=== PATIENT | male | born 1950 | race Caucasian/White ===

== ENCOUNTER 2021-02-03 13:13 | Outpatient (REF) | payer MEDICARE, SELFPAY ==
--- NOTE | ~2021-02-03 | MR_ITS ---
EXAMINATION: MR ABDOMEN WITHOUT AND WITH CONTRAST CLINICAL INFORMATION: History of hepatitis C. Hepatic coma. COMPARISON: Outside ultrasound report from 01/07/2021. Outside CT report from 08/12/2019. TECHNIQUE: MR abdomen was performed without and with use of 10 mL intravenous Gadavist gadolinium contrast. Postcontrast images are performed in multiphase dynamic sequences. Imaging was performed in 3 planes. FINDINGS: LUNG BASES: The visualized lung bases are unremarkable. LIVER, GALLBLADDER, AND BILIARY TREE: Normal size of the liver. Normal signal without signal dropout on the phase imaging to suggest steatosis. There is a nodular Contour of the liver, consistent with a history of cirrhosis. No focal hepatic lesion or biliary ductal dilatation is present. Specifically, no arterially enhancing lesion. No areas of early washout. The gallbladder is unremarkable with no evidence of gallbladder wall thickening, or obvious pericholecystic inflammatory changes. PANCREAS: Unremarkable. SPLEEN: Normal. ADRENAL GLANDS: Normal. KIDNEYS AND URETERS: The kidneys are normal in size, shape, and enhance symmetrically. No hydronephrosis. No perinephric stranding. GASTROINTESTINAL TRACT: No bowel obstruction. No ascites or fluid collection. ABDOMINAL WALL: No significant hernia is appreciated. LYMPH NODES: No lymphadenopathy. VASCULAR: Unremarkable. OSSEOUS STRUCTURES: Marrow signal normal. Degenerative changes of the spine. Status post median sternotomy. MR/MR abdomen wo/w con IMPRESSION: Cirrhotic liver with no suspicious liver lesion identified.
== END 2021-02-03 13:14 | disposition home or self-care (01) ==
LOC: HO.MRI 13:13
PROVIDERS: Visit Provider Internal Medicine Gastroenterology
DX: R93.2 Abnormal findings on diagnostic imaging of liver and biliary tract (principal); K74.69 Other cirrhosis of liver; B18.2 Chronic viral hepatitis C
CPT/HCPCS: 74183; A9585

== ENCOUNTER 2021-12-02 06:40 | Day surgery (SDC) | payer MEDICARE, SELFPAY ==
[2021-11-27 14:10] VITALS: BMI 29.8
[2021-11-27 15:47] VITALS: BMI 29.8
--- NOTE | 2021-12-01 08:21 | HO.ANESPROP2 ---
Documented by User: Betzaida Patrick NP 12/01/21 10:04 HPI - Anesthesia Eval Consult details Narrative: 71yo M for Upper Endoscopy and Colonoscopy Eliquis for afib Hx AVR x 2 (2006 and redo 2016) [facility] Past Medical History Medical History Anxiety Atrial fibrillation Cirrhosis GERD (gastroesophageal reflux disease) Hepatitis-C HTN (hypertension) Nephrolithiasis Surgical History Surgical History H/O aortic valve replacement History of esophagogastroduodenoscopy (EGD) History of surgery on arm Hx of bilateral cataract extraction Hx of colonoscopy Social History Social History Are you a primary auto care center manager to a significant other at home: No Do you presently have visiting nurse or other home services: No Patient Tobacco Use Status: Never used Tobacco Use of substances other than those prescribed or required for medical reasons: No Have you been hit, kicked, punched, or otherwise hurt by someone within the past year? If so, by whom?: No Are you DNR?: No Advance Directives: No Advance Directives Information Provided: Yes Advance Directives on File: No Recently lost weight without trying: No Nutrition Risks: No Nutritional Risk Meds Allergies Allergy/AdvReac Type Severity Reaction Status Date / Time No Known Allergies Allergy Verified 12/02/21 06:49 Home Medications Medication Instructions Recorded Confirmed Last Taken Type alprazolam 0.5 mg tablet 0.5 mg PO DAILY PRN Anxiety 11/27/21 11/27/21 Unknown History apixaban 5 mg tablet (Eliquis) 5 mg PO BID 11/27/21 11/27/21 11/29/21 17:00 History cholecalciferol (vitamin D3) 25 25 mcg PO DAILY 11/27/21 11/27/21 Unknown History mcg (1,000 unit) capsule (Vitamin D3) diltiazem HCl 30 mg tablet 30 mg PO BID 11/27/21 11/27/21 12/02/21 05:30 History duloxetine 20 mg capsule,delayed 20 mg PO DAILY@0730 11/27/21 11/27/21 12/02/21 05:30 History release duloxetine 60 mg capsule,delayed 60 mg PO BEDTIME 11/27/21 11/27/21 Unknown History release gabapentin 100 mg capsule 100 mg PO BEDTIME 11/27/21 11/27/21 Unknown History losartan 25 mg tablet 25 mg PO DAILY 11/27/21 11/27/21 Unknown History magnesium 25 mg PO DAILY 11/27/21 11/27/21 Unknown History omeprazole 20 mg capsule,delayed 20 mg PO DAILY 11/27/21 11/27/21 12/02/21 05:30 History release vitamin B complex 1 tab PO DAILY 11/27/21 11/27/21 Unknown History Exam Exam Date and Time: December 01, 2021820 Height,Weight and Vital Signs: Height 6 ft Weight 99.79 kg Narrative Narrative: EKG 01/2021 NSR with SA @ 71 ECHO 11/2020 LV chamber size is normal. Mild concentric hypertrophy. EF 55-60% Normally functioning bioprosthetic valve in aortic position Mitral annuloplasty ring place. Posterior leaflet changes c/w MV repair. Trace to mild MR RV is normal in size and function. Holter 12/2020 aflutter throughout with average HR 101 3% PVC's which may include aberrantly conducted beats Assessment and Plan Assessment Anesthesia Assessment: Chart Reviewed Documented by User: Dora Ashley MD 12/02/21 08:01 [facility] Past Medical History Medical History Anxiety Atrial fibrillation Cirrhosis GERD (gastroesophageal reflux disease) Hepatitis-C HTN (hypertension) Nephrolithiasis Functional capacity: independent ambulation Family History Family history of problems with anesthesia: No Surgical History Surgical History H/O aortic valve replacement History of esophagogastroduodenoscopy (EGD) History of surgery on arm Hx of bilateral cataract extraction Hx of colonoscopy Social History Social History Are you a primary auto care center manager to a significant other at home: No Do you presently have visiting nurse or other home services: No Patient Tobacco Use Status: Never used Tobacco Use of substances other than those prescribed or required for medical reasons: No Have you been hit, kicked, punched, or otherwise hurt by someone within the past year? If so, by whom?: No Are you DNR?: No Advance Directives: No Advance Directives Information Provided: Yes Advance Directives on File: No Recently lost weight without trying: No Nutrition Risks: No Nutritional Risk Meds Allergies Allergy/AdvReac Type Severity Reaction Status Date / Time No Known Allergies Allergy Verified 12/02/21 06:49 Home Medications Medication Instructions Recorded Confirmed Last Taken Type alprazolam 0.5 mg tablet 0.5 mg PO DAILY PRN Anxiety 11/27/21 11/27/21 Unknown History apixaban 5 mg tablet (Eliquis) 5 mg PO BID 11/27/21 11/27/21 11/29/21 17:00 History cholecalciferol (vitamin D3) 25 25 mcg PO DAILY 11/27/21 11/27/21 Unknown History mcg (1,000 unit) capsule (Vitamin D3) diltiazem HCl 30 mg tablet 30 mg PO BID 11/27/21 11/27/21 12/02/21 05:30 History duloxetine 20 mg capsule,delayed 20 mg PO DAILY@0730 11/27/21 11/27/21 12/02/21 05:30 History release duloxetine 60 mg capsule,delayed 60 mg PO BEDTIME 11/27/21 11/27/21 Unknown History release gabapentin 100 mg capsule 100 mg PO BEDTIME 11/27/21 11/27/21 Unknown History losartan 25 mg tablet 25 mg PO DAILY 11/27/21 11/27/21 Unknown History magnesium 25 mg PO DAILY 11/27/21 11/27/21 Unknown History omeprazole 20 mg capsule,delayed 20 mg PO DAILY 11/27/21 11/27/21 12/02/21 05:30 History release vitamin B complex 1 tab PO DAILY 11/27/21 11/27/21 Unknown History Exam Airway Mallampati Class: II TM Dist: >3cm Neck ROM: Full Heart: Irregular,fast Lungs: CTA Assessment and Plan Final Anesthetic Review Family History of Problems with Anesthesia: No ASA Class: III Final Preanesthetic Review: Meds/Allgs Chart Reviewed, Consent Obtained/Reviewed and Anes Risks/Benef Reviewed Patient Risk: Intermediate Procedure Risk: Low Anesthetic Plan Anesthetic Plan: MAC: Disposition: Standard PACU
--- NOTE | 2021-12-02 07:01 | ECG_ITS ---
Test Reason : tachycardia Blood Pressure : / mmHG Vent. Rate : 147 BPM Atrial Rate : 147 BPM P-R Int : 118 ms QRS Dur : 098 ms QT Int : 304 ms P-R-T Axes : 000 013 261 degrees QTc Int : 475 ms Sinus tachycardia Nonspecific ST and T wave abnormality ST depression, consider subendocardial injury Lateral leads Abnormal ECG No previous ECGs available Referred By: Nba Neri Electronically Signed By:MINNA GEE
--- NOTE | 2021-12-02 07:10 | PC.NURSE ---
pt with hr in the 150's. anes made aware. ekg being done. anes evaluating at bedside.
[2021-12-02 07:11] LABS: Hemoglobin 12.3 g/dl (14.0-18.0); Mean Corpuscular HGB Conc 32.4 g/dl (31.0-36.0); Mean Corpuscular Hemoglobin 23.2 pg (27.0-33.0); Mean Corpuscular Volume 71.6 fL (80.0-98.0); Mean Platelet Volume 10.4 fL (9.4-12.4); NRBC Pct Auto 0.2 /100WBC (0.0-0.2); Platelet Count 205 X10*3/uL (160-400); Red Blood Count 5.31 X10*6/uL (4.60-5.80); Red Cell Distribution Width 15.9 % (11.0-16.0); White Blood Count 8.2 X10*3/uL (4.8-10.8)
[2021-12-02] MEDS: Lactated Ringers 1,000 ML 100 ML IVCONT (07:20)
[2021-12-02 07:21] LABS: INTERNATIONAL NORM RATIO 1.1 (0.9-1.1)
--- NOTE | 2021-12-02 07:30 | MHC.SHP ---
Pre-Procedural Eval Section A Date of Service: 12/02/21 Section B Chief Complaint: screening,reflux Details of Present Illness: see H*P no changes Relevant Family History (Specify if Yes): No Relevant Social History: None Present Medications: see Short Stay Collaborative assessment Medical History: No relevant PMH History of Previous Operations: No relevant previous surgery Allergies: Allergies Allergy/AdvReac Type Severity Reaction Status Date / Time No Known Allergies Allergy Verified 12/02/21 06:49 Review of Systems Sugical H&P ROS: Negative: Constitution, Cardiovascular, Respiratory, Neurological, Psychiatric, Hem-Onc, Allergic/Immunologic, Gastrointestinal, Genitourinary, Musculoskeletal, Integumentary, Endocrine and Eyes/Ears/Nose/Throat Exam Surgical H&P Exam: Normal: HEENT, Normal: Heart, Normal: Lungs, Normal: Extremities, Normal: Abdomen, Normal: Skin and Normal: Neurological Plan Diagnosis/Plan: Unchanged I have reviewed the history and physical and performed a pertinent physical examination on my patient. No changes have occurred unless specified.
--- NOTE | 2021-12-02 07:32 | PC.NURSE ---
medicated by colette soto at bedside. ok'd to proceed with procedures.
[2021-12-02 07:46] LABS: Alanine Aminotransferase 15 U/L (0-40); Albumin Level 4.8 g/dL (3.5-5.0); Alkaline Phosphatase 73 U/L (39-117); Anion Gap 16 (12-20); Aspartate Amino Transferase 27 U/L (5-37); Bilirubin Total 1.4 mg/dL (0.0-1.0); Blood Urea Nitrogen 16 mg/dL (9-16); Calcium 9.7 mg/dL (8.4-10.2); Carbon Dioxide 23 mmol/L (22-29); Chloride 101 mmol/L (96-108); Creatinine Clr Calc Pharmacy 68.1; Estimated Glomerular Filt Rate > 60; Glucose Fasting 89 mg/dL (60-99); Potassium 4.3 mmol/L (3.3-5.1); Sodium 136 mmol/L (135-145); Total Protein 8.4 g/dL (6.5-8.0)
--- NOTE | 2021-12-02 08:15 | PM.OP ---
Brief Operative Note Date of Service: 12/02/21 Pre-op diagnosis: gerd screening Post-op diagnosis: same Procedure: egd, colon Surgeon: Roni Miramontes Anesthesia: MAC Was an Marketing Information Coordinator used for this Procedure?: No Estimated blood loss (mL): 2 Pathology: other Condition: stable Disposition: PACU
[2021-12-02 08:20] VITALS: BP 91/56; PULSE 75; RESP 16; TEMP 36.6; O2SAT 96
[2021-12-02 08:35] VITALS: BP 110/72; PULSE 74; RESP 18; TEMP 36.6; O2SAT 97
--- NOTE | 2021-12-02 10:04 | HO.POSTANES ---
Post Anesthesia Evaluation Post Anesthesia Evaluation Vital Signs: Vital Signs Temp Pulse Resp BP Pulse Ox O2 Del Method 12/02/21 08:35 97.9 F 74 18 110/72 97 Room Air 12/02/21 08:20 97.9 F 75 16 91/56 L 96 Room Air Anesthesia: Monitored Mental Status: Awake Pain Control: Satisfactory Nausea/Vomiting: None Hydration: Adequate Anesthesia-Related Issues: No Anes. Related Issues Comments: HR normalized
--- NOTE | 2021-12-02 10:31 | OP_ITS ---
SURGEON: Roni Miramontes MD INDICATIONS: Gastroesophageal reflux disease and prior history of adenomatous colon polyps. PREOPERATIVE DIAGNOSIS: POSTOPERATIVE DIAGNOSIS: PROCEDURE PERFORMED: Upper endoscopy with biopsy, colonoscopy to the terminal ileum. ESTIMATED BLOOD LOSS: COMPLICATIONS: ANESTHESIA: Monitored anesthesia care. ASSISTANTS: SPECIMENS: DESCRIPTION OF PROCEDURE: History and physical performed. The risks and benefits of the procedure were explained to the patient. Informed consent was obtained. The patient was placed in the left lateral decubitus position. The Olympus video gastroscope was introduced into the esophagus, stomach, and duodenum. Examination was performed. The scope was removed. He tolerated the procedure well and was taken to the recovery area in stable condition. The procedure was performed on December 02, 2021. FINDINGS: Upper endoscopy: 1. Esophagus: The esophagus was normal. There were no varices. There was no esophagitis. Biopsies were obtained from the EG junction. 2. Stomach: The stomach showed no evidence of masses or ulcers. There was a single benign-appearing gastric polyp on the greater curvature in the midbody. This was measured less than 5 mm and was removed with a biopsy forceps. Antral biopsies were obtained to evaluate for H pylori. 3. Duodenum: The bulb and second portion were normal. Colonoscopy: The terminal ileum was examined and appeared normal. The visualized colonic mucosa was normal. The quality of the prep was good. No polyps were identified. There was mild sigmoid diverticulosis with a single diverticulum seen in the cecum. Retroflexed examination showed internal hemorrhoids. IMPRESSION: 1. Gastroesophageal reflux disease. 2. Gastric polyp. 3. Normal colonoscopy. RECOMMENDATION: 1. Follow up the biopsy results. 2. Repeat colonoscopy is recommended in 10 years. MD FARHAN Lau/ALYSSIAL / [id number]
== END 2021-12-02 08:54 | disposition home or self-care (01) ==
PROVIDERS: Nurse Practitioner; PCP Nurse Practitioner Family; Visit Provider Internal Medicine Gastroenterology
PROC: (CPT 43239; principal; 2021-12-02 07:30)
DX: Z12.11 Encounter for screening for malignant neoplasm of colon (principal); Z86.010 Personal history of colon polyps; K57.30 Diverticulosis of large intestine without perforation or abscess without bleeding; K64.8 Other hemorrhoids; K21.9 Gastro-esophageal reflux disease without esophagitis; K31.7 Polyp of stomach and duodenum; K74.69 Other cirrhosis of liver; I10 Essential (primary) hypertension; I48.91 Unspecified atrial fibrillation; Z95.2 Presence of prosthetic heart valve; Z86.19 Personal history of other infectious and parasitic diseases; Z79.899 Other long term (current) drug therapy; Z79.01 Long term (current) use of anticoagulants
CPT/HCPCS: 43239; G0105; 36415; 80053; 85027; 85610; 88305; 88342; 93005; J2250